=== PATIENT | male | born 1985 | race Caucasian/White ===

== ENCOUNTER 2017-06-20 08:57 | Emergency (ER) | payer SELFPAY ==
[2017-06-20 09:03] VITALS: BMI 29.5
--- NOTE | 2017-06-20 09:35 | ED PDOC ---
Arrival/HPI - General Historian: Patient, Partner EM Caveat: Acuity of Condition - History of Present Illness Time/Duration: Prior to Arrival Symptom Onset: Gradual Symptom Course: Worsening Quality: Aching Severity Level: 8 Activities at Onset: Rest Context: Home - General Chief Complaint: ENT Problem Time Seen by Provider: 06/20/17 09:02 - History of Present Illness Narrative History of Present Illness (Text): Patient is a 31 year old male with past medical history of congenital partial left sided deafness and extensive history of ear infections presents to [facility] with complaints of an 8/10 right sided ear pain which started on 06/15/17. Patient states that as time progressed the ear pain began to extend upwards to his temporal region and downward to his jaw line. Patient admits to continuous discharge ranging from clear, white, and pink colored. Patient also admits to a increased loss of hearing in right ear as well as decreased in appetite due to chewing exacerbating his pain. He mentions a previous dental visit about a month ago which involved removal of a tooth due to it being broken. Patient dates the last time he was in a pool to 4 weeks prior. Patient denies trauma, fevers, chills, n/v/d, shortness of breath, chest pain, dizziness. Patient states this is his first ear infection in a couple years. With his last ear infection he was recommended to have tubes placed but never followed up with the recommendation. Patient states that since his cousin had a similar ear infection, he decided to take 2 doses of her ampicillin on 06/18/17 PMD: none allergies: NKDA 06/20/17 09:52 (Oc Corona) Past Medical History - Provider Review Nursing Documentation Reviewed: Yes - Infectious Disease Hx of Infectious Diseases: None - Psychiatric Hx Substance Use: No - Anesthesia Hx Anesthesia: No Family/Social History - Physician Review Nursing Documentation Reviewed: Yes Family/Social History: Other Smoking Status: Heavy Smoker > 10 Cigarettes Daily Hx Alcohol Use: Yes Frequency of alcohol use: Socially Hx Substance Use: No Narrative Family History (Free Text): Non contributory 06/20/17 10:03 (Oc Corona) Allergies/Home Meds Allergies/Adverse Reactions: Allergies No Known Allergies Allergy (Verified 06/20/17 09:02) Review of Systems - Physician Review All systems were reviewed & negative as marked: Yes - Review of Systems Systems not reviewed;Unavailable: Acuity of Condition Constitutional: absent: Fatigue, Fevers Eyes: absent: Vision Changes ENT: Hearing Changes, TMJ Pain Respiratory: absent: SOB, Cough, Sputum Cardiovascular: absent: Chest Pain Gastrointestinal: absent: Abdominal Pain, Nausea, Vomiting Genitourinary Male: Normal. absent: Dysuria Skin: absent: Rash, Pruritis, Skin Lesions Neurological: Headache. absent: Dizziness Psychiatric: Normal Physical Exam Vital Signs Reviewed: Yes Temperature: Afebrile Blood Pressure: Normal Pulse: Regular Respiratory Rate: Normal Appearance: Positive for: Well-Appearing Pain Distress: None Mental Status: Positive for: Alert and Oriented X 3 - Systems Exam Head: Present: Atraumatic, Normocephalic Extroacular Muscles: Present: EOMI Ears: Present: Erythema (Right ear), TM Bulging (B/L), Other ( cone of light not visualized bilaterally, pus not appreciated bilaterally ). No: Fluid, TM Perf Mouth: Present: Moist Mucous Membranes, Other (TMJ tenderness) Pharnyx: Present: Normal. No: ERYTHEMA, EXUDATE Respiratory/Chest: Present: Clear to Auscultation, Good Air Exchange, Respiratory Distress Cardiovascular: Present: Regular Rate and Rhythm, Murmurs, Normal S1, S2 Abdomen: Present: Tenderness, Normal Bowel Sounds Neurological: Present: CN II-XII Intact Skin: Present: Warm, Normal Color Psychiatric: Present: Alert, Oriented x 3 Medical Decision Making Re-evaluation Time: 11:38 - Lab Interpretations I have reviewed the lab results: Yes Interpretation: All labs normal ED Course and Treatment: Assessment 31 year old male presenting with right sided ear pain radiating to temporal region and jaw Plan - CBC, BMP, Blood Cx - Toradol - Mastoid CT, Maxillofacial CT; positive for bilateral otomastoiditis; antibiotics started, ENT consulted - IV ceftriaxone, IV vanc started - After discussing lab results, physical exam findings and CT results, ENT recommends levaquin inpatient and outpatient prescription for ciprofloxacin 06/20/17 10:07 06/20/17 12:51 (Oc Corona) 06/20/17 11:43 A 31 year old male presents with right sided ear pain which started 5 days ago. In agreement with resident note. Patient was seen and evaluated with resident, came up with plan and treatment together. 06/20/17 13:45 Case was discussed with Dr. Lira, ENT, who recommends outpatient management with Ciproflaxin. Patient has no WBC and no fever so outpatient therapy is appropriate. Initially patient was placed on admission pending call back from ENT and then after discussion with ENT, admitting order was cancelled. Patient is happy to be discharged home and will make sure to take antibiotics as directed. He is also aware of the importance of follow up with Dr. Lira. ( Zac Narvaez) - Lab Interpretations Lab Results: 06/20/17 10:00 06/20/17 10:00 Lab Results 06/20/17 10:00: Sodium 141, Potassium 4.2, Chloride 105, Carbon Dioxide 29, Anion Gap 11, BUN 14, Creatinine 0.6, Est GFR ( Amer) > 60, Est GFR (Non- Af Amer) > 60, Random Glucose 98, Calcium 9.3 06/20/17 10:00: WBC 10.7, RBC 4.66, Hgb 14.8, Hct 42.1, MCV 90.3, MCH 31.8, MCHC 35.2, RDW 12.9, Plt Count 251, MPV 10.0, Gran % 71.2 H, Lymph % (Auto) 18.6 L, [place] % (Auto) 9.0 H, Eos % (Auto) 1.1 L, Baso % (Auto) 0.1, Gran # 7.61 H, Lymph # 2.0, [place] # 1.0 H, Eos # 0.1, Baso # 0.01 - RAD Interpretation Radiology Orders: 06/20/17 09:39 MASTOID W/ CONTRAST [CT] Stat 06/20/17 09:40 MAXILLOFACIAL W/CONTRAST [CT] Stat - Medication Orders Current Medication Orders: Discontinued Medications Vancomycin HCl (Vancomycin 1gm) 1 gm in 250 mls @ 167 mls/hr IVPB STAT STA PRN Reason: Protocol Stop: 06/20/17 13:39 Last Admin: 06/20/17 13:20 Dose: 167 mls/hr Ceftriaxone Sodium (Rocephin 1 Gram Ivpb) 1 gm in 100 mls @ 200 mls/hr IVPB STAT STA PRN Reason: Protocol Stop: 06/20/17 12:40 Last Admin: 06/20/17 12:21 Dose: 200 mls/hr Iohexol (Omnipaque 350 100 Ml) Confirm Administered Dose 350 mg .ROUTE .STK-MED ONE Stop: 06/20/17 10:36 Ketorolac Tromethamine (Toradol) 30 mg IVP STAT STA Stop: 06/20/17 09:38 Last Admin: 06/20/17 10:01 Dose: 30 mg Re-Assess: LIZA Pain Assessment Document 06/20/17 11:01 AB (Rec: 06/20/17 11:35 AB [id number]) Pain Reassessment Is this a pain reassessment? Yes Sleep Is patient sleeping during reassessment? No Presence of Pain Presence of Pain No Pain Scale Used Pain Scale Used Numeric Disposition/Present on Arrival - Present on Arrival Any Indicators Present on Arrival: No History of DVT/PE: No History of Uncontrolled Diabetes: No Urinary Catheter: No History of Decub. Ulcer: No History Surgical Site Infection Following: None - Disposition Have Diagnosis and Disposition been Completed?: Yes Disposition Time: 13:20 Patient Plan: Discharge - Disposition Diagnosis: Mastoiditis of both sides Disposition: HOME/ ROUTINE Condition: GOOD Discharge Instructions (ExitCare): Mastoiditis (ED) Additional Instructions: Mr Paredes, thank you for letting us take care of you today. Your provider was Dr. Corona and Dr. Narvaez. You were treated for Bilateral Mastoiditis. The emergency medical care you received today was directed at your acute symptoms. If you were prescribed any medication, please fill it and take as directed. It may take several days for your symptoms to resolve. Return to the Emergency Department if your symptoms worsen, do not improve, or if you have any other problems. Follow up with ENT surgeon Dr. Lira within a week for further evaluation of mastoiditis. Dr. Lira [phone] [address] [place], [place] Please contact your doctor or call one of the physicians/clinics you have been referred to that are listed on the Patient Visit Information form that is included in your discharge packet. Bring any paperwork you were given at discharge with you along with any medications you are taking to your follow up visit. Our treatment cannot replace ongoing medical care by a primary care provider (PCP) outside of the emergency department. Thank you for allowing the [facility] team to be part of your care today. If you had an X-Ray or CT scan: A Radiologist will review the ED reading if any change in treatment is needed we will contact you. If you had a blood, urine, or wound culture: It will take several days for the results, if any change in treatment is needed we will contact you. If you had an STI test: It will take 48 hours for the results. Please call after 1 week if you have not heard back. Prescriptions: Ciprofloxacin HCl [Cipro] 500 mg PO BID #20 tablet Ciprofloxacin/Hydrocortisone [Cipro Hc Otic Suspension] 10 ml OT BID #14 drops.susp Referrals: PCP,NO [Primary Care Provider] - Follow up with primary Cliff Lira DO [Staff Provider] - Follow up with primary Forms: [employer] ([place]ijani)
[2017-06-20 10:03] LABS: BASO # 0.01 K/mm3 (0.0-2.0); BASO % 0.1 % (0.0-3.0); EOS # 0.1 (0.0-0.7); EOS % 1.1 % (1.5-5.0); GRAN # 7.61 (1.4-6.5); GRAN % 71.2 % (50.0-68.0); HEMATOCRIT 42.1 % (42.0-52.0); LYMPH % 18.6 % (22.0-35.0); MEAN CELL VOLUME 90.3 fl (80.0-105.0); MEAN CORPUSCULAR HEMOGLOBIN 31.8 pg (25.0-35.0); MEAN CORPUSCULAR HGB CONC 35.2 g/dl (31.0-37.0); RED CELL DISTRIBUTION WIDTH 12.9 % (11.5-14.5); WHITE BLOOD COUNT 10.7 10^3/ul (4.5-11.0)
[2017-06-20 10:16] LABS: BLOOD UREA NITROGEN 14 mg/dL (7-21); CALCIUM 9.3 mg/dL (8.4-10.5); CARBON DIOXIDE 29 mmol/L (21-33); CHLORIDE 105 mmol/L (98-107); GFR AFRICAN-AMERICAN > 60; GLUCOSE,RANDOM 98 mg/dL (70-110); POTASSIUM 4.2 mmol/L (3.6-5.0); SODIUM 141 mmol/L (132-148)
[2017-06-20] MEDS ORDERED: Iohexol 350 MG/100 ML VIAL ONE (10:35)
--- NOTE | 2017-06-20 11:36 | CT ---
PROCEDURE: CT OF THE TEMPORAL BONES WITH CONTRAST HISTORY: RIGHT EAR PAIN COMPARISON: None available. TECHNIQUE: Following administration of iodinated intravenous contrast, high resolution axial images of the temporal bones were obtained. Coronal and sagittal reformats were generated. Contrast dose: 100 cc of Omni 350 Radiation dose: Total exam DLP = 639 mGy-cm. This CT exam was performed using one or more of the following dose reduction techniques: Automated exposure control, adjustment of the mA and/or kV according to patient size, and/or use of iterative reconstruction technique. FINDINGS: RIGHT TEMPORAL BONE: RIGHT MIDDLE EAR: There is complete opacification of the middle ear cavity there is no disruption of the ossicles or erosion of the scutum RIGHT INNER EAR: Cochlea: Normal Semicircular canals: Normal RIGHT MASTOID AIR CELLS: There is complete opacification of the mastoid air cells and bony sclerosis consistent with mastoiditis RIGHT INTERNAL AUDITORY CANAL: Normal RIGHT EXTERNAL AUDITORY CANAL: Normal RIGHT VESTIBULAR AND COCHLEAR AQUEDUCT: Normal OTHER: no abnormal enhancement. LEFT TEMPORAL BONE: LEFT MIDDLE EAR: There is complete opacification of the middle ear cavity there is no disruption of the ossicles or erosion of the scutum LEFT INNER EAR: Cochlea: Normal Semicircular canals: Normal LEFT MASTOID AIR CELLS: There is complete opacification of the mastoid air cells and bony sclerosis consistent with mastoiditis LEFT INTERNAL AUDITORY CANAL: Normal LEFT EXTERNAL AUDITORY CANAL: Normal LEFT VESTIBULAR AND COCHLEAR AQUEDUCTS: Normal OTHER FINDINGS: no abnormal enhancement IMPRESSION: Bilateral of otomastoiditis.
--- NOTE | 2017-06-20 11:42 | CT ---
PROCEDURE: CT MAXILLOFACIAL BONES WITH CONTRAST HISTORY: facial swelling COMPARISON: None. TECHNIQUE: Contiguous axial CT images of the maxillofacial bones were obtained following administration of IV contrast. Coronal and sagittal reformats were generated. Intravenous contrast Dose: Study performed in combination with the temporal bones. 100 cc of Omnipaque 350 injected Radiation dose: Total exam DLP = 797 mGy-cm. This CT exam was performed using one or more of the following dose reduction techniques: Automated exposure control, adjustment of the mA and/or kV according to patient size, and/or use of iterative reconstruction technique. FINDINGS: NASAL BONES: Unremarkable. ORBITS: Unremarkable. PARANASAL SINUSES/ MASTOIDS: Clear. MAXILLA: Unremarkable. MANDIBLE/ TEMPOROMANDIBULAR JOINTS: Unremarkable. SKULL BASE: Unremarkable. TEMPORAL BONES: Extensive bilateral otomastoiditis OTHER FINDINGS: None. IMPRESSION: Extensive bilateral otomastoiditis Study is otherwise unremarkable
[2017-06-20] MEDS ORDERED: Vancomycin 1gm in NS 250ml 1 GM/250 ML BAG IVPB STA (12:10)
[2017-06-20] MEDS ORDERED: cefTRIAXone 1 gm 1 GM/100 ML BAG IVPB STA (12:11)
[2017-06-20 15:04] VITALS: BP 130/80; PULSE 84; RESP 17; TEMP 98.6; O2SAT 99
== END 2017-06-20 15:04 | disposition home or self-care (01) ==
LOC: ED 08:57 → UNDOADMOB 12:35 → ERH 12:35 → ED 15:04
DX: H70.93 Unspecified mastoiditis, bilateral (principal)
CPT/HCPCS: 70481; 70488; 80048; 85025; 87040; 96365; 96375; 99285; J0696; J1885; Q9967